=== PATIENT | male | born 1955 | race Caucasian/White ===

== ENCOUNTER 2022-02-14 14:57 | Inpatient (IN) | payer MEDICARE, MEDICAID ==
[~2022-02-14] VITALS: Ht 188 cm; Wt 78.0 kg
[2022-02-14] MEDS ORDERED: OLAN5TAB52 PO (15:10)
[2022-02-14] MEDS ORDERED: GABA-1181 PO (15:10)
[2022-02-14] MEDS ORDERED: CLOT10SO TP (15:10)
[2022-02-14] MEDS ORDERED: MIRT-149 PO (15:10)
[2022-02-14] MEDS ORDERED: METO-558 PO (15:10)
[2022-02-14] MEDS ORDERED: LOSA-382 PO (15:10)
[2022-02-14] MEDS ORDERED: LIPA1CAP8 PO (15:10)
[2022-02-14] MEDS ORDERED: ATOR40TA28 PO (15:10)
[2022-02-14] MEDS ORDERED: FLUT1AER IH (15:10)
[2022-02-14] MEDS ORDERED: EMPA25TA3 PO (15:10)
[2022-02-14] MEDS ORDERED: LITH300T PO (15:10)
[2022-02-14] MEDS ORDERED: METF-1211 PO (15:10)
[2022-02-14] MEDS ORDERED: BENZ-70 PO (15:11)
[2022-02-14 15:27] LABS: BASOPHILS % (AUTO) 0.7 % (0.0-2.0); EOSINOPHILS % (AUTO) 1.5 % (1.0-6.0); HEMATOCRIT 48.4 % (41-53); HEMOGLOBIN 15.7 g/dL (13.5-17.5); LYMPHOCYTES # (AUTO) 1.8 K/uL (1.0-4.8); MEAN CORPUSCULAR HEMOGLOBIN 30.3 pg (26.0-34.0); MEAN CORPUSCULAR HGB CONC 32.3 G/dL (31.0-37.0); MEAN CORPUSCULAR VOLUME 94 fL (80-100); MONOCYTES # (AUTO) 0.8 K/uL (0.1-1.0); NEUTROPHILS # (AUTO) 6.7 K/uL (1.8-7.7); NEUTROPHILS % (AUTO) 70.8 % (40.0-70.0); PLATELET COUNT (AUTO) 181 K/uL (150-450); RED BLOOD CELL COUNT(AUTO) 5.17 MIL/uL (4.50-5.90); RED CELL DISTRIBUTION WIDTH 14.1 % (11.5-14.5)
[2022-02-14 15:38] LABS: ANION GAP 12 mmol/L (8-16); CALCIUM, TOTAL 10.3 mg/dL (8.8-10.5); CARBON DIOXIDE 27 mmol/L (22-29); CHLORIDE 100 mmol/L (98-107); CREATININE 1.13 mg/dL (0.60-1.30); GLOMERULAR FILTR. RATE CALC > 60 mL/min (>60); GLUCOSE,RANDOM 153 mg/dL (70-110); POTASSIUM 3.9 mmol/L (3.5-5.1); SODIUM SERUM 139 mmol/L (136-145); UREA NITROGEN, BLOOD 14 mg/dL (7-18)
[2022-02-14 15:44] LABS: ALANINE AMINOTRANSFERASE 57 U/L (12-78); ALKALINE PHOSPHATASE 137 U/L (46-116); ASPARTATE AMINOTRANSFERASE 31 U/L (15-37); BILIRUBIN,TOTAL 0.3 mg/dL (0.1-1.0); TOTAL PROTEIN, SERUM 7.8 g/dL (6.4-8.2)
[2022-02-14 17:35] LABS: COVID AG,FIA SOURCE NASOPHARYNGEAL
[2022-02-14] MEDS ORDERED: MAG HYDROX/AL HYDROX/SIMETH ES 30 ML SUSPENSION UDCUP PO PRN (22:15)
[2022-02-14] MEDS ORDERED: PETROLATUM,WHITE 28 GM JELLY TP PRN (22:15)
[2022-02-14] MEDS ORDERED: ACETAMINOPHEN 325 MG TABLET PO PRN (22:15)
[2022-02-14] MEDS ORDERED: BENZOCAINE/MENTHOL LOZENGE PO PRN (22:15)
[2022-02-14] MEDS ORDERED: ALBUTEROL SULFATE HFA 90 MCG/PUFF 8 GM INHALER IH PRN (22:15)
[2022-02-14] MEDS ORDERED: ONDANSETRON HCL 4 MG TABLET PO PRN (22:15)
[2022-02-14] MEDS ORDERED: BACITRACIN 28 GM OINTMENT TP PRN (22:15)
[2022-02-14] MEDS ORDERED: DOCUSATE SODIUM 100 MG CAPSULE PO PRN (22:15)
[2022-02-14] MEDS ORDERED: IBUPROFEN 600 MG TABLET PO PRN (22:15)
[2022-02-14] MEDS ORDERED: CloNIDine HCL 0.1 MG TABLET PO PRN (22:15)
[2022-02-14] MEDS ORDERED: MAGNESIUM HYDROXIDE SUSPENSION 30 ML UDCUP PO PRN (22:15)
[2022-02-14] MEDS ORDERED: LOPERAMIDE HCL 2 MG CAPSULE PO PRN (22:15)
[2022-02-14] MEDS ORDERED: OMEPRAZOLE 20 MG CAPSULE PO PRN (22:15)
[2022-02-14] MEDS ORDERED: INFLUENZA VIRUS VACCINE QVS 2022-23 (6MO+)/PF 60 MCG/0.5 ML SYRINGE IM. ONE (22:30)
[2022-02-14 22:35] VITALS: BP 128/68
[2022-02-15 08:30] VITALS: BP 124/73
[2022-02-15 16:28] VITALS: BP 129/72
[2022-02-16 08:34] VITALS: BP 135/83
[2022-02-16 16:35] VITALS: BP 135/82
[2022-02-17 08:52] VITALS: BP 133/79
[2022-02-17 16:26] VITALS: BP 98/65
[2022-02-18 08:16] VITALS: BP 135/75
[2022-02-18 16:15] VITALS: BP 103/66
[2022-02-19 08:10] VITALS: BP 117/60
[2022-02-19 16:22] VITALS: BP 125/74
[2022-02-20 00:15] VITALS: BP 119/77
[2022-02-20 06:40] LABS: COVID AG,FIA SOURCE NASAL SWAB
[2022-02-20 09:30] VITALS: BP 137/77
[2022-02-20 16:12] VITALS: BP 114/70
[2022-02-21 08:30] VITALS: BP 129/84
[2022-02-21] MEDS ORDERED: LITH450CRT PO (15:13)
[2022-02-21] MEDS ORDERED: LIPA1CAP18 PO (15:13)
[2022-02-21] MEDS ORDERED: CLOT15CR23 TP (15:13)
[2022-02-21] MEDS ORDERED: METO50 PO (15:13)
[2022-02-21] MEDS: MetFORMIN HCL 500 MG TABLET PO SCH (16:23)
[2022-02-21 18:43] VITALS: BP 119/79
[2022-02-22] MEDS: MetFORMIN HCL 500 MG TABLET PO SCH ×2 (06:51→16:32)
[2022-02-22 08:30] VITALS: BP 105/60
[2022-02-22] MEDS: EMPAGLIFLOZIN 25 MG TABLET PO SCH (09:27)
[2022-02-22 16:09] VITALS: BP 101/70
[2022-02-23] MEDS: MetFORMIN HCL 500 MG TABLET PO SCH (06:43)
[2022-02-23 08:30] VITALS: BP 160/91
[2022-02-23] MEDS: EMPAGLIFLOZIN 25 MG TABLET PO SCH (10:13)
== END 2022-02-23 14:45 | disposition home or self-care (01) | DRG 885 ==
LOC: EMS 15:01 → 3EX 20:00
PROVIDERS: ADMIT Psychiatry & Neurology Psychiatry; ATTEND Psychiatry & Neurology Psychiatry
DX: F31.30 Bipolar disorder, current episode depressed, mild or moderate severity, unspecified (principal); Z20.822 Contact with and (suspected) exposure to COVID-19; E11.9 Type 2 diabetes mellitus without complications; F10.10 Alcohol abuse, uncomplicated; F20.9 Schizophrenia, unspecified; G47.00 Insomnia, unspecified; F41.9 Anxiety disorder, unspecified; I10 Essential (primary) hypertension; K21.9 Gastro-esophageal reflux disease without esophagitis; K59.00 Constipation, unspecified; F17.210 Nicotine dependence, cigarettes, uncomplicated; Z88.8 Allergy status to other drugs, medicaments and biological substances
CPT/HCPCS: 80053; 80178; 83036; 85025; 99285; G0378; G0480; Q9967